=== PATIENT | male | born 1995 | race Caucasian/White ===

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

== ENCOUNTER 2017-11-06 13:42 | Emergency (ER) ==
[2017-11-06 13:45] VITALS: BP 118/76; TEMP 99.7; BMI 32.3
--- NOTE | 2017-11-06 14:07 | ED.PDOC ---
General ED Provider: Dr. JANEEN FRANCIS Chief Complaint: Sore Throat Stated Complaint: Sore throat, cough Time Seen by Physician: 14:05 Mode of Arrival: Walk-In Information Source: Patient Exam Limitations: No limitations Primary Care Provider: OLGA LIDIA HUTCHINS Nursing and Triage Documentation Reviewed and Agree: Yes Reviewed sepsis parameters & appropriate labs ordered?: Yes System Inflammatory Response Syndrome: Not Applicable Sepsis Protocol: For patient's 13 years and over: Temp is 96.8 and below OR 101 and greater Pulse >90 BPM Resp >20/minute Acutely Altered Mental Status Are patient's symptoms suggestive of a new infection, such as: -Pneumonia -Skin, Soft Tissue -Endocarditis -UTI -Bone, Joint Infection -Implantable Device -Acute Abdominal Infection -Wound Infection -Meningitis -Blood Stream Catheter Infection -Unknown System Inflammatory Response Syndrome: Not Applicable EENT Complaint Exam - Throat Complaint/Exam Onset/Duration: Sorethroat yesterday AM; cough later in morning Symptoms Are: Worse Timimg: Constant Initial Severity: Mild Current Severity: Moderate Aggravating: Reports: Eating Alleviating: Reports: None Associated Signs and Symptoms: Reports: Cough. Denies: Fever, Dysphagia, Drooling Related History: Reports: Similar Episode (Strep throat) Uvula Midline: Yes Shantell-tonsillar Fluctuence: No Lesions: Present: Pharynx (erythema and swollen erythemic tonsils). Absent: Lip , Gums, Tongue, Buccal Mucosa Review of Systems - Review Of Systems Constitutional: Reports: Malaise Ears, Nose, Mouth, Throat: Reports: Mouth pain (Sore throat) Respiratory: Reports: Cough All Other Systems: Reviewed and Negative Past Medical History - Past Medical History Previously Healthy: Yes Endocrine: Reports: None Cardiovascular: Reports: None Respiratory: Reports: None Hematological: Reports: None Gastrointestinal: Reports: None Genitourinary: Reports: Unknown (possible polycystic kidney disease) Neuro/Psych: Reports: None Musculoskeletal: Reports: Back Pain Cancer: Reports: None - Surgical History General Surgical History: Reports: None - Family History Family History: Reports: Other (PCKD) - Social History Smoking Status: Current every day smoker, Heavy tobacco smoker Hx Substance Use: No Alcohol Screening: None Physical Exam - Physical Exam Appearance: Well-appearing Ill-appearing: None Pain Distress: None Eyes: JUNAID, EOMI ENT: Oropharynx normal (Except posterior pharynx and tonsils with erythema) Neck: Supple Respiratory: Airway patent, Breath sounds clear, Breath sounds equal Cardiovascular: RRR Skin: Warm, Dry Neurological: Alert, Oriented Psychiatric: Affect appropriate, Mood appropriate Critical Care Note - Critical Care Note Total Time (mins): 8 Course - Course Orders, Labs, Meds: Orders Category Date Time Status FLU A/B MOLECULAR Stat LAB 11/06/17 13:53 Received RAPID STREP SCREEN [MOLECULAR GROUP A STREP] Stat LAB 11/06/17 13:53 Received Vital Signs: Temp Pulse Resp BP Pulse Ox 11/06/17 13:43 99.7 F H 125 H 20 118/76 97 Departure - Departure Time of Disposition: 14:27 Disposition: HOME SELF-CARE Discharge Problem: Pharyngitis Instructions: Pharyngitis (ED) Condition: Good Pt referred to PMD for follow-up: Yes (Follow up with primary care) IPMP verified?: No (Narcotics not prescribed) Additional Instructions: Take antibiotic as prescribed; although the rapid strep was negative, it may still grow bacteria later. Follow up with primary care provider if not better next week. Prescriptions: Azithromycin Inj [Zithromax] 500 mg IV DAILY #5 vial Allergies/Adverse Reactions: Allergies No Known Allergies Allergy (Verified 11/06/17 13:45) Home Medications: Ambulatory Orders Azithromycin Inj [Zithromax] 500 mg IV DAILY #5 vial 11/06/17 Disposition Discussed With: Patient
== END 2017-11-06 14:43 | disposition home or self-care (01) ==
LOC: ED 13:42
DX: J02.9 Acute pharyngitis, unspecified (principal); R05 Cough; F17.210 Nicotine dependence, cigarettes, uncomplicated
CPT/HCPCS: 87502; 87651; 99283

== ENCOUNTER 2017-11-08 12:36 | Emergency (ER) ==
[2017-11-08 12:46] VITALS: BP 149/90; TEMP 99.3; BMI 32.0
[2017-11-08] MEDS ORDERED: ANCEF IM STA (12:53)
--- NOTE | 2017-11-08 12:59 | ED.PDOC ---
General ED Provider: Dr. EMILIANO PLUMMER Chief Complaint: Non-specific Complaint Stated Complaint: sore throat Time Seen by Physician: 12:40 (on zithromax with not much improvement) Mode of Arrival: Walk-In Information Source: Patient Exam Limitations: No limitations Primary Care Provider: OLGA LIDIA HUTCHINS Nursing and Triage Documentation Reviewed and Agree: Yes Reviewed sepsis parameters & appropriate labs ordered?: Yes (throat pain x 3 days exudative) System Inflammatory Response Syndrome: Not Applicable Sepsis Protocol: For patient's 13 years and over: Temp is 96.8 and below OR 101 and greater Pulse >90 BPM Resp >20/minute Acutely Altered Mental Status Are patient's symptoms suggestive of a new infection, such as: -Pneumonia -Skin, Soft Tissue -Endocarditis -UTI -Bone, Joint Infection -Implantable Device -Acute Abdominal Infection -Wound Infection -Meningitis -Blood Stream Catheter Infection -Unknown System Inflammatory Response Syndrome: Not Applicable EENT Complaint Exam - Throat Complaint/Exam Onset/Duration: 3 days Symptoms Are: Still present Timimg: Intermittent Initial Severity: Moderate Current Severity: Moderate Aggravating: Reports: Eating Associated Signs and Symptoms: Reports: Cough, Nasal congestion. Denies: Fever , Dysphagia, Drooling, Foreign body sensation, Chills, Wheezing, Hoarseness, Sinus discomfort, Difficulty breathing, Lethargy, Irritability, Decreased activity, Vomiting, Diarrhea, Decreased hearing, Ear drainage Uvula Midline: Yes Shantell-tonsillar Fluctuence: No Scarlatinaform Rash Present: No Stridor Present: No Sinus Tenderness Present: No Tonsillar Hypertrophy Present: Yes Tonsillar Exudate Present: Yes Shantell-tonsillar Swelling Present: No Adenopathy Present: No Splenomegaly Present: No Differential Diagnoses: Pharyngitis Review of Systems - Review Of Systems Constitutional: Reports: Weakness, Loss of appetite Eyes: Reports: No symptoms Ears, Nose, Mouth, Throat: Reports: Throat pain Respiratory: Reports: Cough Cardiac: Reports: No symptoms GI: Reports: No symptoms : Reports: No symptoms Musculoskeletal: Reports: No symptoms Skin: Reports: No symptoms Neurological: Reports: No symptoms Endocrine: Reports: No symptoms Hematologic/Lymphatic: Reports: No symptoms All Other Systems: Reviewed and Negative Past Medical History - Past Medical History Previously Healthy: Yes Endocrine: Reports: None Cardiovascular: Reports: None Respiratory: Reports: None Hematological: Reports: None Gastrointestinal: Reports: None Genitourinary: Reports: Unknown (possible polycystic kidney disease) Neuro/Psych: Reports: None Musculoskeletal: Reports: Back Pain Cancer: Reports: None - Surgical History General Surgical History: Reports: None - Family History Family History: Reports: Other (PCKD) - Social History Smoking Status: Current every day smoker, Heavy tobacco smoker Hx Substance Use: No Alcohol Screening: None - Immunizations Tetanus Shot up to Date: No Physical Exam - Physical Exam Appearance: Ill-appearing Ill-appearing: Moderate Pain Distress: Moderate Eyes: JUNAID, EOMI, Conjunctiva clear ENT: Erythema, Exudate Respiratory: Airway patent, Breath sounds clear, Breath sounds equal, Respirations nonlabored Cardiovascular: RRR, Pulses normal, No rub, No murmur GI/: Soft, Nontender, No masses, Bowel sounds normal, No Organomegaly Musculoskeletal: Normal strength, ROM intact, No edema, No calf tenderness Skin: Warm, Dry, Normal color Neurological: Sensation intact, Motor intact, Reflexes intact, Cranial nerves intact, Alert, Oriented Psychiatric: Affect appropriate, Mood appropriate Critical Care Note - Critical Care Note Total Time (mins): 0 Course - Course Orders, Labs, Meds: Orders Category Date Time Status MONONUCLOSIS SCREEN Stat LAB 11/08/17 Ordered Cefazolin Sodium [Ancef] MEDS 11/08/17 12:53 Stat 1 gm IM ONCE STA Medications Discontinued Medications Generic Name Dose Route Start Last Admin Trade Name Jo PRN Reason Stop Dose Admin Cefazolin Sodium 1 gm 11/08/17 12:53 Ancef IM 11/08/17 12:54 ONCE STA Vital Signs: Temp Pulse Resp BP Pulse Ox 11/08/17 12:37 99.3 F 98 H 20 149/90 H 96 Departure - Departure Time of Disposition: 13:00 Disposition: HOME SELF-CARE Discharge Problem: Pharyngitis Qualifiers: Pharyngitis/tonsillitis etiology: unspecified etiology Qualified Code(s): J02.9 - Acute pharyngitis, unspecified Instructions: Pharyngitis (ED) Condition: Good Pt referred to PMD for follow-up: Yes IPMP verified?: No Additional Instructions: Please call your Family Physician as soon as possible to schedule a follow-up appointment.STOP ZITHROMAX START MEDS AT 7PM Allergies/Adverse Reactions: Allergies No Known Allergies Allergy (Verified 11/08/17 12:43) Home Medications: Ambulatory Orders Azithromycin Inj [Zithromax] 500 mg PO DAILY 11/08/17 Disposition Discussed With: Patient
== END 2017-11-08 13:40 | disposition home or self-care (01) ==
LOC: ED 12:36
DX: J02.9 Acute pharyngitis, unspecified (principal); F17.210 Nicotine dependence, cigarettes, uncomplicated
CPT/HCPCS: 36415; 86308; 96372; 99282